=== PATIENT | female | born 1965 | race Two or more races ===

== ENCOUNTER 2019-09-14 09:15 | Inpatient (IN) | payer OTHER ==
[~2019-09-14] VITALS: Ht 157.5 cm; Wt 75.7 kg
[2019-09-14] MEDS ORDERED: CLONAZEP PO (10:27)
[2019-09-14] MEDS ORDERED: VISTARIL25 MG PO (10:27)
[2019-09-22] MEDS ORDERED: MOTRIN IB200 MG PO (12:08)
[2019-09-22] MEDS ORDERED: SURFAK240 M1 PO (12:09)
[2019-09-22] MEDS ORDERED: NEURONTIN300 MG PO (12:10)
== END 2019-09-22 12:34 | disposition home or self-care (01) | DRG 743 ==
LOC: O/R 09-21 09:00 → SURG-SUITE 09-21 09:00 → SURH 09-21 09:15 → SURG-SUITE 09-21 14:35
PROVIDERS: ADMIT Obstetrics & Gynecology
PROC: 0UT7FZZ Resection of Bilateral Fallopian Tubes, Via Natural or Artificial Opening With Percutaneous Endoscopic Assistance (ICD-10-PCS; 2019-09-21)
PROC: 0UT9FZZ Resection of Uterus, Via Natural or Artificial Opening With Percutaneous Endoscopic Assistance (ICD-10-PCS; principal; 2019-09-21 11:45)
DX: N95.0 Postmenopausal bleeding (principal); D25.0 Submucous leiomyoma of uterus; D25.1 Intramural leiomyoma of uterus; D25.2 Subserosal leiomyoma of uterus; N87.1 Moderate cervical dysplasia